=== PATIENT | female | born 1990 | race Caucasian/White ===

== ENCOUNTER 2017-01-31 13:34 | Emergency (ER) | payer MEDICAID, OTHER ==
[~2017-01-31] VITALS: Ht 157.5 cm; Wt 79.8 kg
[2017-01-31] MEDS ORDERED: PROA1AER INH (15:02)
[2017-01-31] MEDS ORDERED: GUAISYP4 PO (15:03)
[2017-01-31 15:10] VITALS: BP 111/69
== END 2017-01-31 15:29 | disposition home or self-care (01) ==
LOC: M ED 15:17
DX: J20.9 Acute bronchitis, unspecified (principal); F17.210 Nicotine dependence, cigarettes, uncomplicated

== ENCOUNTER → 2017-04-17 | Outpatient (CLI) | payer MEDICAID ==
[~2017-04-17] MED LIST: BACT800T5 PO; GUAISYP4 PO; PROAAER10 INH; TRINTAB3 PO
--- NOTE | 2017-04-17 14:53 | REP ---
FIRST TRIMESTER ULTRASOUND: Real-time sonographic evaluation of the gravid uterus performed utilizing transabdominal technique. There is a signal living intrauterine gestation with an estimated gestational age of 7 weeks 3 days based on a crown-rump length of 13 mm, EDC 12/01/2017. heart rate 160 beats per minute. There is no subchorionic hemorrhage. Right ovarian cystic structure probably represents a corpus luteum, approximately 2.7 cm in maximum diameter. Blood flow seen in each ovary with duplex Doppler evaluation, with no torsion. Signed by Chris Suarez MD 04/17/2017 05:09 P
== END ==
LOC: M RAD 13:48
PROVIDERS: ATTEND Physician Assistant
DX: Z32.01 Encounter for pregnancy test, result positive (principal); Z3A.00 Weeks of gestation of pregnancy not specified

== ENCOUNTER → 2017-05-17 | Outpatient (CLI) | payer OTHER ==
--- NOTE | 2017-05-17 15:09 | REP ---
PELVIC ULTRASOUND: Real-time sonographic evaluation of the pelvis is performed utilizing transabdominal and endovaginal technique. The urinary bladder measures 3.9 x 2.2 x 6.8 cm. The uterus measures 7.4 x 4.7 x 5.3 cm. Endometrial thickness is 18 mm. Endometrium is heterogeneous in echotexture with some peripheral areas of increased flow with Doppler evaluation. I cannot exclude some degree of retained products of conception. Fibroid is noted in the left fundus, 1.7 x 1.1 x 1.8 cm. Right ovary measures 2.6 x 1.7 x 2.5 cm with a paraovarian cyst on the right 1.1 cm in diameter. The left ovary is normal in size and echotexture, 2.9 x 1.4 x 1.9 cm. There is no adnexal mass or free fluid. IMPRESSION: Thickened heterogeneous endometrium with areas of somewhat increased flow peripherally. I cannot exclude some degree of retained products of conception. Signed by Chris Suarez MD 05/18/2017 01:24 P
== END ==
LOC: M RAD 10:20
PROVIDERS: ATTEND Physician Assistant
DX: Z09 Encounter for follow-up examination after completed treatment for conditions other than malignant neoplasm (principal); O02.1 Missed abortion

== ENCOUNTER 2017-07-21 13:14 | Emergency (ER) | payer OTHER ==
[~2017-07-21] VITALS: Ht 157.5 cm; Wt 72.7 kg
[~2017-07-21 13:14] MED LIST changes: -BACT800T5 PO; -TRINTAB3 PO
[2017-07-21 13:15] VITALS: BP 116/73
[2017-07-21] MEDS ORDERED: TRINTAB3 PO (13:27)
[2017-07-21] MEDS ORDERED: BACT800T5 PO (13:51)
== END 2017-07-21 14:44 | disposition home or self-care (01) ==
LOC: M ED 13:14
DX: H04.319 Phlegmonous dacryocystitis of unspecified lacrimal passage (principal); F17.210 Nicotine dependence, cigarettes, uncomplicated

== ENCOUNTER 2017-10-10 09:13 | Emergency (ER) | payer OTHER ==
[2017-10-10] MEDS ORDERED: ONDANSETRON 4MG/2ML VIAL (J2405) As Ordered (10:20)
[2017-10-10 10:22] LABS: BEDSIDE GLUCOSE 87 MG/DL (70-105)
[2017-10-10] MEDS: ONDANSETRON 4MG/2ML VIAL (J2405) IV (10:27)
[2017-10-10 10:28] LABS: BASO % 0.5 % (0.0-1.0); EOS # 0.1 10^3/uL (0.0-0.50); EOS % 1.6 % (0.0-3.0); HEMATOCRIT 40.3 % (36.0-47.0); HEMOGLOBIN 13.8 g/dl (12.0-16.0); IMMATURE GRANULOCYTE % 0.3 % (0-0); LYMPH # 1.8 10^3/uL (1.5-6.5); LYMPH % 28.1 % (24.0-44.0); MEAN CORPUSCULAR HEMOGLOBIN 30.8 pg (27.0-33.0); MEAN CORPUSCULAR HGB CONC 34.2 g/dl (32.0-36.5); MONO # 0.3 10^3/uL (0.0-0.8); NEUTROPHILS # 4.1 10^3/uL (1.8-7.7); NEUTROPHILS % 64.5 % (36.0-66.0); PLATELET COUNT, AUTOMATED 206 10^3/uL (150-450); RED BLOOD COUNT 4.48 10^6/uL (4.00-5.40); RED CELL DISTRIBUTION WIDTH 13.4 % (11.5-14.5); WHITE BLOOD COUNT 6.4 10^3/uL (4.0-10.0)
[2017-10-10 10:49] LABS: AMPHETAMINES LEVEL URINE NEGATIVE (NEGATIVE); BARBITURATES URINE NEGATIVE (NEGATIVE); BENZODIAZEPINES URINE NEGATIVE (NEGATIVE); CANNABINOIDS URINE NEGATIVE (NEGATIVE); COCAINE METABOLITE URINE NEGATIVE (NEGATIVE); METHADONE URINE NEGATIVE (NEGATIVE); OPIATES URINE NEGATIVE (NEGATIVE); PHENCYCLIDINE URINE NEGATIVE (NEGATIVE)
[2017-10-10 10:59] LABS: ALBUMIN/GLOBULIN RATIO 1.11 (1.00-1.93); ALKALINE PHOSPHATASE 52 U/L (45-117); ALT/SGPT 16 U/L (12-78); ANION GAP 6 MEQ/L (8-16); AST/SGOT 15 U/L (7-37); BILIRUBIN,DIRECT 0.2 MG/DL (0.0-0.2); BILIRUBIN,TOTAL 0.9 MG/DL (0.2-1.0); BLOOD UREA NITROGEN 7 MG/DL (7-18); CALCIUM LEVEL 8.8 MG/DL (8.5-10.1); CARBON DIOXIDE LEVEL 26 MEQ/L (21-32); CHLORIDE LEVEL 109 MEQ/L (98-107); CREATININE FOR GFR 0.56 MG/DL (0.55-1.02); GLOMERULAR FILTRATION RATE > 60.0 (>60); GLUCOSE, FASTING 83 MG/DL (70-105); POTASSIUM SERUM 3.9 MEQ/L (3.5-5.1); SODIUM LEVEL 141 MEQ/L (136-145); TOTAL PROTEIN 7.6 GM/DL (6.4-8.2)
[2017-10-10 11:25] LABS: FREE T4 0.81 NG/DL (0.76-1.46)
== END 2017-10-10 12:17 | disposition home or self-care (01) ==
LOC: M ED 09:13
DX: R56.9 Unspecified convulsions (principal); F17.200 Nicotine dependence, unspecified, uncomplicated
CPT/HCPCS: J2405

== ENCOUNTER 2017-12-02 18:01 | Emergency (ER) | payer OTHER | END 2017-12-02 18:57 | disposition left against medical advice (07) | LOC: M ED 18:01 | DX: Z53.21 Procedure and treatment not carried out due to patient leaving prior to being seen by health care provider (principal) ==

== ENCOUNTER 2017-12-03 14:47 | Emergency (ER) | payer OTHER ==
[2017-12-03] MEDS: MECLIZINE 25 MG TABLET PO (16:32)
== END 2017-12-03 17:21 | disposition home or self-care (01) ==
LOC: M ED 14:47
DX: H61.23 Impacted cerumen, bilateral (principal); F17.200 Nicotine dependence, unspecified, uncomplicated; Z79.899 Other long term (current) drug therapy
CPT/HCPCS: 69210

== ENCOUNTER 2018-01-10 10:46 | Emergency (ER) | payer OTHER, SELFPAY | END 2018-01-10 13:31 | disposition home or self-care (01) | LOC: M ED 10:46 | DX: J06.9 Acute upper respiratory infection, unspecified (principal); H61.23 Impacted cerumen, bilateral; F17.200 Nicotine dependence, unspecified, uncomplicated; Z20.9 Contact with and (suspected) exposure to unspecified communicable disease | CPT/HCPCS: 71046 ==

== ENCOUNTER 2018-02-17 07:08 | Emergency (ER) | payer OTHER ==
[2018-02-17] MEDS ORDERED: ONDANSETRON 4MG/2ML VIAL (J2405) As Ordered (07:28)
[2018-02-17] MEDS: NS 1,000 ML IV (07:30)
[2018-02-17] MEDS: ONDANSETRON 4MG/2ML VIAL (J2405) IV ×2 (07:33→08:29)
[2018-02-17] MEDS: LORazepam 2 MG/ML VIAL (J2060) IV (07:33)
[2018-02-17 07:41] LABS: BASO # 0.1 10^3/uL (0.0-0.2); BASO % 0.5 % (0.0-1.0); EOS # 0.2 10^3/uL (0.0-0.50); EOS % 1.5 % (0.0-3.0); HEMATOCRIT 44.1 % (36.0-47.0); IMMATURE GRANULOCYTE % 0.3 % (0-3.0); LYMPH # 3.3 10^3/uL (1.5-6.5); LYMPH % 33.1 % (24.0-44.0); MEAN CORPUSCULAR HEMOGLOBIN 31.3 pg (27.0-33.0); MEAN CORPUSCULAR VOLUME 92.1 fl (80.0-96.0); MONO # 0.6 10^3/uL (0.0-0.8); MONO % 6.2 % (0.0-5.0); NEUTROPHILS # 5.9 10^3/uL (1.8-7.7); NEUTROPHILS % 58.4 % (36.0-66.0); PLATELET COUNT, AUTOMATED 326 10^3/uL (150-450); RED BLOOD COUNT 4.79 10^6/uL (4.00-5.40); RED CELL DISTRIBUTION WIDTH 12.7 % (11.5-14.5); WHITE BLOOD COUNT 10.1 10^3/uL (4.0-10.0)
[2018-02-17 08:00] LABS: CONTROL LINE HCG INT CTR LINE PRESENT; HCG, SERUM QUALITATIVE NEGATIVE (NEGATIVE)
[2018-02-17 08:07] LABS: ALBUMIN/GLOBULIN RATIO 0.98 (1.00-1.93); ALKALINE PHOSPHATASE 61 U/L (45-117); ALT/SGPT 24 U/L (12-78); ANION GAP 11 MEQ/L (8-16); AST/SGOT 17 U/L (7-37); BILIRUBIN,DIRECT < 0.1 MG/DL (0.0-0.2); BILIRUBIN,TOTAL 0.4 MG/DL (0.2-1.0); BLOOD UREA NITROGEN 12 MG/DL (7-18); CALCIUM LEVEL 8.8 MG/DL (8.5-10.1); CARBON DIOXIDE LEVEL 21 MEQ/L (21-32); CHLORIDE LEVEL 107 MEQ/L (98-107); CREATININE FOR GFR 0.87 MG/DL (0.55-1.30); GLOMERULAR FILTRATION RATE > 60.0 (>60); GLUCOSE, FASTING 102 MG/DL (70-100); SODIUM LEVEL 139 MEQ/L (136-145); TOTAL PROTEIN 8.1 GM/DL (6.4-8.2)
[2018-02-17 08:16] LABS: LIPASE 277 U/L (73-393)
[2018-02-17] MEDS: ACETAMINOPHEN TAB 650MG DOSE (2X325MG) PO (08:29)
[2018-02-17 08:31] LABS: KETONE, URINE AUTO RFX NEGATIVE (NEGATIVE); LEUKOCYTE ESTERASE UR AUTO RFX NEGATIVE (NEGATIVE); MUCUS, URINE RFX SMALL (NEGATIVE); NITRITE, URINE AUTO RFX NEGATIVE (NEGATIVE); RBC, URINE AUTO RFX 4 /HPF (0-3); SPECIFIC GRAVITY UR AUTO RFX 1.017 (1.002-1.035); SQUAM EPITHELIAL CELL UR AURFX 15 /HPF (0-6); WBC, URINE AUTO RFX 4 /HPF (0-3)
[2018-02-17] MEDS: levETIRAcetam INJection 1,000 MG in D5W 100 ML IV (08:44)
[2018-02-19 09:42] LABS: BEDSIDE GLUCOSE 88 MG/DL (70-105)
== END 2018-02-17 10:27 | disposition home or self-care (01) ==
LOC: M ED 07:08
DX: R56.9 Unspecified convulsions (principal); R51 Headache; R11.0 Nausea; R10.9 Unspecified abdominal pain; F17.200 Nicotine dependence, unspecified, uncomplicated
CPT/HCPCS: J2405

== ENCOUNTER → 2018-05-22 | Outpatient (REF) | payer OTHER ==
[2018-05-22 12:47] LABS: FREE T4 0.78 NG/DL (0.76-1.46)
[2018-05-22 16:14] LABS: FREE T3 3.7 PG/ML (2.2-4.0)
[2018-05-22 16:37] LABS: TOTAL 25(OH) VITAMIN D 19.9 NG/ML (30.0-100.0)
== END ==
LOC: M SFHCPLAZ 10:39
DX: E03.9 Hypothyroidism, unspecified (principal); F41.9 Anxiety disorder, unspecified

== ENCOUNTER 2019-01-27 10:46 | Emergency (ER) | payer MEDICAID, OTHER, SELFPAY ==
[~2019-01-27] VITALS: Ht 157.5 cm; Wt 72.7 kg
[~2019-01-27 10:46] MED LIST changes: +BACT800T5 PO; +DEBR6.5S4 AU; +KEPP1TAB PO; +MECL1CHW PO; +SUDATAB18 PO; +TRINTAB PO; +ZOFR4TAB14 PO
[2019-01-27] MEDS ORDERED: BUSP10TA (10:59)
[2019-01-27] MEDS ORDERED: FLUO20CA19 (10:59)
[2019-01-27] MEDS ORDERED: LEVE750T5 (10:59)
[2019-01-27] MEDS ORDERED: ACETAMINOPHEN TAB 650MG DOSE (2X325MG) PO ONE (12:15)
[2019-01-27] MEDS ORDERED: KEPP1TAB PO (12:28)
[2019-01-27 13:12] VITALS: BP 102/52
[2019-01-28] MEDS ORDERED: LEVE750T5 (11:37)
[2019-01-28] MEDS ORDERED: KEPP10002 PO (13:50)
== END 2019-01-27 13:15 | disposition home or self-care (01) ==
LOC: M ED 10:46 → EDBD 10:46 → M ED 13:15
DX: G40.909 Epilepsy, unspecified, not intractable, without status epilepticus (principal); F12.10 Cannabis abuse, uncomplicated; Z79.899 Other long term (current) drug therapy

== ENCOUNTER 2019-01-28 11:17 | Emergency (ER) | payer MEDICAID, SELFPAY ==
[~2019-01-28] VITALS: Ht 157.5 cm; Wt 83.3 kg
[~2019-01-28 11:17] MED LIST changes: +BUSP10TA; +FLUO20CA19; +LEVE750T5
[2019-01-28] MEDS ORDERED: ONDANSETRON 4MG/2ML VIAL (J2405) IV ONE ×2 (11:30→12:15)
[2019-01-28] MEDS ORDERED: LEVE750T5 (11:37)
[2019-01-28 11:49] LABS: BASO # 0.1 10^3/uL (0.0-0.2); BASO % 0.5 % (0.0-1.0); EOS # 0.1 10^3/uL (0.0-0.50); EOS % 0.7 % (0.0-3.0); HEMATOCRIT 43.6 % (36.0-47.0); LYMPH # 3.1 10^3/uL (1.5-6.5); LYMPH % 29.9 % (24.0-44.0); MEAN CORPUSCULAR HEMOGLOBIN 31.1 pg (27.0-33.0); MEAN CORPUSCULAR HGB CONC 34.4 g/dl (32.0-36.5); MEAN CORPUSCULAR VOLUME 90.5 fl (80.0-96.0); MONO # 0.6 10^3/uL (0.0-0.8); MONO % 6.1 % (0.0-5.0); NEUTROPHILS # 6.4 10^3/uL (1.8-7.7); NEUTROPHILS % 62.3 % (36.0-66.0); PLATELET COUNT, AUTOMATED 334 10^3/uL (150-450); RED BLOOD COUNT 4.82 10^6/uL (4.00-5.40); WHITE BLOOD COUNT 10.3 10^3/uL (4.0-10.0)
[2019-01-28 12:03] LABS: HCG, SERUM QUALITATIVE NEGATIVE (NEGATIVE)
[2019-01-28 12:10] LABS: ALBUMIN 4.3 GM/DL (3.2-5.2); ALT/SGPT 22 U/L (12-78); BILIRUBIN,DIRECT < 0.1 MG/DL (0.0-0.2); BILIRUBIN,TOTAL 0.4 MG/DL (0.2-1.0); BLOOD UREA NITROGEN 8 MG/DL (7-18); CARBON DIOXIDE LEVEL 21 MEQ/L (21-32); CHLORIDE LEVEL 108 MEQ/L (98-107); CREATININE FOR GFR 0.81 MG/DL (0.55-1.30); GLOMERULAR FILTRATION RATE > 60.0 (>60); GLUCOSE, FASTING 94 MG/DL (70-100); POTASSIUM SERUM 3.9 MEQ/L (3.5-5.1); SODIUM LEVEL 137 MEQ/L (136-145); TOTAL PROTEIN 8.1 GM/DL (6.4-8.2)
[2019-01-28] MEDS ORDERED: ACETAMINOPHEN 500 MG TAB PO ONE (12:15)
--- NOTE | 2019-01-28 12:21 | REP ---
CT Head without contrast HISTORY: Seizure COMPARISON: 02/17/2018 There is no intraparenchymal hemorrhage, acute infarct, mass or midline shift. The ventricular system is normal in appearance. There is no extra cerebral collection. There is no fracture. The visualized sinuses are clear. IMPRESSION: There is no intracranial lesion. Electronically Signed by Mark Lu MD 01/28/2019 12:13 P
[2019-01-28] MEDS ORDERED: levETIRAcetam INJection 1,000 MG in D5W 100 ML IV ONE (12:30)
[2019-01-28 13:30] VITALS: BP 102/55
[2019-01-28] MEDS ORDERED: KEPP10002 PO (13:50)
== END 2019-01-28 14:12 | disposition home or self-care (01) ==
LOC: M ED 11:17
DX: G40.909 Epilepsy, unspecified, not intractable, without status epilepticus (principal); F17.200 Nicotine dependence, unspecified, uncomplicated; Z79.899 Other long term (current) drug therapy; Z91.14 Patient's other noncompliance with medication regimen
CPT/HCPCS: 70450; 80048; 80076; 84703; 85025; 96374; 96375; 96376; 99284; J1953; J2405

== ENCOUNTER 2019-02-18 12:35 | Emergency (ER) | payer MEDICAID, SELFPAY ==
[~2019-02-18] VITALS: Ht 157.5 cm; Wt 72.7 kg
[~2019-02-18 12:35] MED LIST changes: +KEPP10002 PO
[2019-02-18] MEDS ORDERED: KEPP1TAB2 PO (13:17)
[2019-02-18 13:36] LABS: BASO # 0.1 10^3/uL (0.0-0.2); BASO % 0.5 % (0.0-1.0); EOS # 0.1 10^3/uL (0.0-0.50); EOS % 0.7 % (0.0-3.0); HEMATOCRIT 40.7 % (36.0-47.0); LYMPH # 2.5 10^3/uL (1.5-6.5); LYMPH % 25.8 % (24.0-44.0); MEAN CORPUSCULAR HEMOGLOBIN 31.8 pg (27.0-33.0); MEAN CORPUSCULAR HGB CONC 34.4 g/dl (32.0-36.5); MEAN CORPUSCULAR VOLUME 92.5 fl (80.0-96.0); MONO # 0.6 10^3/uL (0.0-0.8); MONO % 6.4 % (0.0-5.0); NEUTROPHILS # 6.3 10^3/uL (1.8-7.7); NEUTROPHILS % 66.3 % (36.0-66.0); PLATELET COUNT, AUTOMATED 285 10^3/uL (150-450); WHITE BLOOD COUNT 9.5 10^3/uL (4.0-10.0)
[2019-02-18 14:32] VITALS: BP 122/67
--- NOTE | 2019-02-18 14:50 | REP ---
Emergency first trimester obstetric sonography: History: Vaginal bleeding. Findings: Transabdominal and transvaginal scanning are performed. An intrauterine gestational sac is seen. A yolk sac is noted within the sac. No definite embryonic pole is seen. By mean sac size diameter (14.8 mm) this would correspond with 6 week 2 day gestational age estimate. There is a small subchorionic hemorrhage adjacent to the sac measuring 1.6 x 0.7 x 1.4 cm. Normal left ovary is seen measuring 2.8 x 1.6 x 2.0 cm. Right ovary dimensions are 3.7 x 3.0 x 4.1 cm. The right ovary is high in the pelvis seen only on transabdominal imaging. There is a 2.1 cm follicle cyst in the right ovary. Doppler flow is normal bilaterally in the ovaries, resistive indices are 0.51 on the right and 0.57 on the left. Impression: There is an intrauterine gestational sac 6 week 2 day by mean sac size diameter. This contains a yolk sac but no definite embryonic pole. viability cannot be confirmed. Consider followup. No cul-de-sac fluid or extra abdominal lesion. There is a 1.6 cm fluid collection adjacent to the sac. Electronically Signed by Dell Evans MD 02/18/2019 07:32 P
== END 2019-02-18 14:41 | disposition home or self-care (01) ==
LOC: M ED 12:35
DX: O20.9 Hemorrhage in early pregnancy, unspecified (principal); O99.351 Diseases of the nervous system complicating pregnancy, first trimester; R56.9 Unspecified convulsions; Z3A.01 Less than 8 weeks gestation of pregnancy; O99.331 Smoking (tobacco) complicating pregnancy, first trimester; F17.210 Nicotine dependence, cigarettes, uncomplicated; Z79.899 Other long term (current) drug therapy

== ENCOUNTER → 2019-03-19 | Outpatient (REF) | payer OTHER ==
[~2019-03-19] MED LIST changes: +KEPP1TAB2 PO
== END ==
LOC: M LAB REF 12:10
PROVIDERS: ATTEND Obstetrics & Gynecology
DX: O36.80X0 Pregnancy with inconclusive fetal viability, not applicable or unspecified (principal); Z3A.00 Weeks of gestation of pregnancy not specified

== ENCOUNTER → 2019-03-22 | Outpatient (CLI) | payer OTHER ==
--- NOTE | 2019-03-22 15:12 | REP ---
Obstetric sonography: History: Supervision of . Followup from February 18, 2019. Findings: Today's transabdominal scanning confirms the presence of a single living intrauterine gestation. The crown-rump length of the embryonic pole is 30 mm. This corresponds with a 0-lgka-0-day gestational age estimate. heart rate is recorded at 160 beats per minute. No subchorionic hemorrhage is seen. There is a small cystic area in the right ovary consistent with corpus luteum, 2.7 cm in greatest diameter. No gross anomaly is seen. Impression: Viable single intrauterine gestation at 9 weeks 6 days by today's crown-rump length. [place] by today's sonography October 19, 2019. Electronically Signed by Dell Evans MD 03/22/2019 03:17 P
== END ==
LOC: M RAD 14:12
PROVIDERS: ATTEND Obstetrics & Gynecology
DX: Z34.81 Encounter for supervision of other normal pregnancy, first trimester (principal); Z3A.09 9 weeks gestation of pregnancy

== ENCOUNTER 2019-04-25 11:04 | Emergency (ER) | payer OTHER ==
[~2019-04-25] VITALS: Ht 157.5 cm; Wt 81.5 kg
[~2019-04-25 11:04] MED LIST changes: -KEPP250T5 PO; -PREN29CH2 PO; -ZOLO25TA PO
[2019-04-25] MEDS ORDERED: ZOLO25TA PO (11:12)
[2019-04-25] MEDS ORDERED: PREN29CH2 PO (11:12)
[2019-04-25] MEDS ORDERED: KEPP10002 PO (11:45)
[2019-04-25] MEDS ORDERED: levETIRAcetam INJection 1,250 MG in D5W 100 ML IV ONE (12:00)
[2019-04-25] MEDS ORDERED: KEPP250T5 PO (12:24)
[2019-04-25 12:30] VITALS: BP 97/57
== END 2019-04-25 12:41 | disposition home or self-care (01) ==
LOC: M ED 11:04 → EDBD 11:04 → M ED 12:41
DX: O99.352 Diseases of the nervous system complicating pregnancy, second trimester (principal); G40.909 Epilepsy, unspecified, not intractable, without status epilepticus; Z79.899 Other long term (current) drug therapy; Z3A.16 16 weeks gestation of pregnancy
CPT/HCPCS: 96365; 99284; J1953

== ENCOUNTER → 2019-04-25 | Outpatient (REF) | payer OTHER ==
[~2019-04-25] MED LIST changes: +KEPP250T5 PO; +PREN29CH2 PO; +ZOLO25TA PO
[2019-04-25 17:36] LABS: HEMATOCRIT 35.8 % (36.0-47.0); HEMOGLOBIN 12.5 g/dl (12.0-15.5); MEAN CORPUSCULAR HEMOGLOBIN 31.7 pg (27.0-33.0); MEAN CORPUSCULAR HGB CONC 34.9 g/dl (32.0-36.5); MEAN CORPUSCULAR VOLUME 90.9 fl (80.0-96.0); PLATELET COUNT, AUTOMATED 276 10^3/uL (150-450); RED BLOOD COUNT 3.94 10^6/uL (4.00-5.40); WHITE BLOOD COUNT 13.4 10^3/uL (4.0-10.0)
[2019-04-25 20:16] LABS: HCG, SERUM QUANTITATIVE 13410 MIU/ML
[2019-04-26 09:42] LABS: RUBELLA IgG QUALITATIVE IMMUNE (IMMUNE)
[2019-04-26 10:13] LABS: HEPATITIS C VIRUS ABY INDEX 0.1 INDEX (<0.8)
[2019-04-26 10:23] LABS: HIV 1&2 SCREEN CENTAUR NEGATIVE (NEGATIVE)
== END ==
LOC: M LAB REF 16:54
PROVIDERS: ATTEND Obstetrics & Gynecology
DX: Z34.82 Encounter for supervision of other normal pregnancy, second trimester (principal)

== ENCOUNTER 2019-05-25 14:39 | Emergency (ER) | payer OTHER ==
[~2019-05-25] VITALS: Ht 157.5 cm; Wt 82.0 kg
[~2019-05-25 14:39] MED LIST changes: +KEPP250T5 PO; +PREN29CH2 PO; +ZOLO25TA PO
[2019-05-25] MEDS ORDERED: FOLI1TAB11 (14:45)
[2019-05-25 15:35] LABS: BASO % 0.3 % (0.0-1.0); EOS # 0.1 10^3/uL (0.0-0.50); EOS % 0.9 % (0.0-3.0); HEMATOCRIT 30.9 % (36.0-47.0); HEMOGLOBIN 10.7 g/dl (12.0-15.5); LYMPH # 2.1 10^3/uL (1.5-6.5); LYMPH % 18.3 % (24.0-44.0); MEAN CORPUSCULAR HEMOGLOBIN 31.4 pg (27.0-33.0); MEAN CORPUSCULAR HGB CONC 34.6 g/dl (32.0-36.5); MEAN CORPUSCULAR VOLUME 90.6 fl (80.0-96.0); MONO # 0.6 10^3/uL (0.0-0.8); MONO % 5.3 % (0.0-5.0); NEUTROPHILS # 8.7 10^3/uL (1.8-7.7); NEUTROPHILS % 74.6 % (36.0-66.0); PLATELET COUNT, AUTOMATED 248 10^3/uL (150-450); RED BLOOD COUNT 3.41 10^6/uL (4.00-5.40); WHITE BLOOD COUNT 11.7 10^3/uL (4.0-10.0)
[2019-05-25 15:56] LABS: BLOOD UREA NITROGEN 5 MG/DL (7-18); CALCIUM LEVEL 8.6 MG/DL (8.5-10.1); CARBON DIOXIDE LEVEL 26 MEQ/L (21-32); CHLORIDE LEVEL 107 MEQ/L (98-107); CREATININE FOR GFR 0.41 MG/DL (0.55-1.30); GLOMERULAR FILTRATION RATE > 60.0 (>60); GLUCOSE, FASTING 84 MG/DL (70-100); POTASSIUM SERUM 3.5 MEQ/L (3.5-5.1); SODIUM LEVEL 139 MEQ/L (136-145)
[2019-05-25] MEDS ORDERED: levETIRAcetam 250MG TABLET (KEPPRA) PO ONE (16:30)
[2019-05-25] MEDS ORDERED: KEPP1TAB PO (17:29)
[2019-05-25 17:43] VITALS: BP 114/61
--- NOTE | 2019-05-26 09:15 | REP ---
OB ULTRASOUND COMPLETE: 05/25/2019. Clinical history: 19 weeks gestation with left lower quadrant pain. Seized prior coming in. Comparison: First trimester ultrasound 03/22/2019, 02/18/2019. Findings: Sonographic evaluation of the gravid uterus shows a single intrauterine gestation in variable position. There is an anterior grade zero placenta without previa or abruption. Cervix is 4.1 cm long and closed. There is a posterior contraction during the early part of the examination which resolved later. biometry:BPD 4.4 cm 19 weeks 1 dayHC 16.2 cm 19 weeksAC 13.9 cm 19 weeks 2 daysFL 3 cm 19 weeks 2 daysHL 2.9 cm 19 weeks 3 days. This gives average ultrasound age 19 weeks 2 days, EDC 10/17/2019. By initial ultrasound EDC 10/14/2019, by LMP 10/19/2019. Measurement ratios are in the normal range. The estimated weight 282 grams or 9 ounces is 30th percentile for dating based on her first ultrasound. anatomy screen: Heart rate 144 and regular. Cranial vault, lateral ventricles, choroid plexus, cavum septum pellucidum, cerebellum, cisterna magna were all intact. Profile view was seen but the nose and lips are not adequately presented lungs, four-chamber heart view, ventricular outflow tracts, diaphragm, left-sided stomach bubble, cord insertion, three-vessel cord, kidneys and bladder and lower extremities were unremarkable. The entirety of the spine is not optimally visualized due to position and the upper extremities also are not optimally visualized due to position. Cord appears draped over the neck. I could not exclude a nuchal cord. Impression: 1. Single intrauterine gestation in variable position with a closed 4 cm long cervix. There is an anterior grade zero placenta without previa abruption and visually normal amniotic fluid volume. 2. There was a contraction noted posteriorly on the early images which had resolved by the later images. 3. heart rate 144 and regular. Estimated weight 30th percentile. Average ultrasound age today 19 weeks 2 days, by initial ultrasound 19 weeks 5 days with EDC 10/14/2019. Electronically Signed by Tommy Triplett MD 05/26/2019 07:39 A
== END 2019-05-25 17:52 | disposition home or self-care (01) ==
LOC: M ED 14:39
DX: O99.352 Diseases of the nervous system complicating pregnancy, second trimester (principal); O99.332 Smoking (tobacco) complicating pregnancy, second trimester; Z3A.19 19 weeks gestation of pregnancy; Z79.899 Other long term (current) drug therapy

== ENCOUNTER → 2019-06-18 | Outpatient (REF) | payer OTHER ==
[~2019-06-18] MED LIST changes: +FOLI1TAB11
== END ==
LOC: M LABNEURO 14:58
PROVIDERS: ATTEND Physician Assistant Medical
DX: R56.9 Unspecified convulsions (principal)

== ENCOUNTER → 2019-07-23 | Outpatient (CLI) | payer OTHER ==
[2019-07-23 15:47] LABS: HEMATOCRIT 30.5 % (36.0-47.0); HEMOGLOBIN 10.2 g/dl (12.0-15.5); MEAN CORPUSCULAR HEMOGLOBIN 31.1 pg (27.0-33.0); MEAN CORPUSCULAR HGB CONC 33.4 g/dl (32.0-36.5); PLATELET COUNT, AUTOMATED 274 10^3/uL (150-450); RED BLOOD COUNT 3.28 10^6/uL (4.00-5.40)
== END ==
LOC: M LAB 13:57
PROVIDERS: ATTEND Nurse Practitioner Women's Health
DX: O09.892 Supervision of other high risk pregnancies, second trimester (principal); Z3A.28 28 weeks gestation of pregnancy

== ENCOUNTER → 2019-08-26 | Outpatient (CLI) | payer OTHER | LOC: M LAB 15:27 | PROVIDERS: ATTEND Physician Assistant Medical | DX: G40.909 Epilepsy, unspecified, not intractable, without status epilepticus (principal) ==

== ENCOUNTER 2019-09-12 18:06 | Emergency (ER) | payer OTHER ==
[~2019-09-12] VITALS: Ht 157.5 cm; Wt 93.2 kg
[2019-09-12] MEDS ORDERED: LEVE500T5 PO (18:14)
[2019-09-12] MEDS ORDERED: LEVE10003 PO (18:14)
[2019-09-12] MEDS ORDERED: NS 1,000 ML IV ONE (18:45)
--- NOTE | 2019-09-12 20:49 | REPVR ---
PROCEDURE INFORMATION: Exam: US , Limited Exam date and time: 09/12/2019 7:13 PM Age: 28 years old Clinical history: complicated by abdominal or pelvic pain; Lower; Third trimester; Gestational age or lmp: 35w 3d; ; Additional info: Pelvic pain S/P seizure; 8 months TECHNIQUE: Imaging protocol: Real-time ultrasound of the maternal uterus with image documentation. Exam focused on the clinical indication. COMPARISON: US OBS SINGEL GEST 05/25/2019 3:58 PM FINDINGS: GESTATION: Gestation: Detailed imaging was not performed. Heart rate: 113 beats per minute. Presentation: Vertex position. Placenta: Anterior. Amniotic fluid: 19.3 cm. DOPPLER: Umbilical artery Doppler: Umbilical cord SD ratio: 2.9. Umbilical cord resistive index: 0.66. MATERNAL: Cervix: Cervical length: 4.8 cm. IMPRESSION: 1. Amniotic fluid index: 19.3 cm. 2. Single living fetus in vertex position. 3. heart rate: 113 beats per minute. Electronically signed by: Jorge Candelaria On 09/12/2019 20:49:11 PM
[2019-09-12 20:54] VITALS: BP 126/67
== END 2019-09-12 21:00 | disposition home or self-care (01) ==
LOC: M ED 18:06
DX: O99.353 Diseases of the nervous system complicating pregnancy, third trimester (principal); G40.909 Epilepsy, unspecified, not intractable, without status epilepticus; O99.89 Other specified diseases and conditions complicating pregnancy, childbirth and the puerperium; R10.2 Pelvic and perineal pain; O99.333 Smoking (tobacco) complicating pregnancy, third trimester; F17.210 Nicotine dependence, cigarettes, uncomplicated; Z3A.35 35 weeks gestation of pregnancy; Z79.899 Other long term (current) drug therapy

== ENCOUNTER → 2019-09-17 | Outpatient (REF) | payer OTHER ==
[~2019-09-17] MED LIST changes: +LEVE10003 PO; +LEVE500T5 PO
== END ==
LOC: M LAB REF 17:07
PROVIDERS: ATTEND Nurse Practitioner Women's Health
DX: O09.893 Supervision of other high risk pregnancies, third trimester (principal)

== ENCOUNTER 2019-10-10 05:02 | Inpatient (IN) | payer OTHER ==
[2019-10-10] VITALS (10 sets, daily range): BP systolic 105–127; BP diastolic 52–75
[~2019-10-10] VITALS: Ht 157.5 cm; Wt 93.6 kg
[2019-10-10] MEDS ORDERED: LACTATED RINGER'S 1000 ML IV STA (05:35)
[2019-10-10] MEDS ORDERED: LR 1,000 ML IV SCH ×2 (05:35→09:00)
[2019-10-10] MEDS ORDERED: BICITRA 30ML SOLN UDC PO ONE (05:45)
[2019-10-10] MEDS ORDERED: ceFAZolin SOD 2 GM in IV 1 EA IV ONE (05:45)
[2019-10-10 06:07] LABS: HEMATOCRIT 33.1 % (36.0-47.0); HEMOGLOBIN 10.7 g/dl (12.0-15.5); MEAN CORPUSCULAR HEMOGLOBIN 29.2 pg (27.0-33.0); MEAN CORPUSCULAR HGB CONC 32.3 g/dl (32.0-36.5); MEAN CORPUSCULAR VOLUME 90.2 fl (80.0-96.0); PLATELET COUNT, AUTOMATED 256 10^3/uL (150-450); RED BLOOD COUNT 3.67 10^6/uL (4.00-5.40); WHITE BLOOD COUNT 14.7 10^3/uL (4.0-10.0)
[2019-10-10] MEDS ORDERED: OXYTOCIN DRIP 30 UNITS in IV 1 EA IV SCH (07:41)
[2019-10-10] MEDS ORDERED: RHOGAM 300 MCG (1500 IU) INJ (J2790) IM SCH (07:45)
[2019-10-10] MEDS ORDERED: MOM 30ML SUSPENSION UDC PO PRN (07:45)
[2019-10-10] MEDS ORDERED: ACETAMINOPHEN 500 MG TAB PO PRN (07:45)
[2019-10-10] MEDS ORDERED: ONDANSETRON 4 MG TAB (S0181) PO PRN (07:45)
[2019-10-10] MEDS ORDERED: MEASLES,MUMPS,RUBELLA VACCINE INJ (MMR-II) (90707) SC SCH (07:45)
[2019-10-10] MEDS ORDERED: PERCOCET 5MG/325MG TAB PO PRN ×3 (07:45→09:00)
[2019-10-10] MEDS ORDERED: KETOROLAC 30 MG/ML VIAL (J1885) IV SCH ×2 (07:45→08:00)
[2019-10-10] MEDS ORDERED: diphenhydrAMINE INJ 50MG/ML VIAL (J1200) IV PRN (07:50)
[2019-10-10] MEDS ORDERED: METOCLOPRAMIDE INJ 10MG/2ML VIAL (J2765) IV PRN ×2 (07:50→09:00)
[2019-10-10] MEDS ORDERED: NALOXONE INJ 0.4 MG/1 ML VIAL (J2310) IV PRN ×2 (07:50)
[2019-10-10] MEDS ORDERED: ONDANSETRON 4MG/2ML VIAL (J2405) IV PRN ×2 (07:50→09:00)
[2019-10-10] MEDS ORDERED: NALBUPHINE HCL 10 MG/ML AMP (J2300) IV PRN (07:50)
[2019-10-10] MEDS ORDERED: KETOROLAC 60 MG/2 ML VIAL (J1885) As Ordered ONE (08:09)
[2019-10-10] MEDS ORDERED: OXYTOCIN INJ 10 UNITS/ML VIAL (J2590) As Ordered ONE (08:09)
[2019-10-10] MEDS ORDERED: ONDANSETRON 4MG/2ML VIAL (J2405) As Ordered ONE (08:09)
[2019-10-10] MEDS ORDERED: MORPHINE PRES-FREE INJ 10 MG/10 ML VIAL (J2274) As Ordered ONE (08:09)
[2019-10-10] MEDS ORDERED: dexameTHASONE 4 MG/ML 1ML VIAL (J1100) As Ordered ONE (08:09)
[2019-10-10] MEDS ORDERED: PHENYLephrine HCL 500 MCG/5 ML (100MCG/ML) SYRINGE (J2370) As Ordered ONE (08:09)
[2019-10-10 08:22] LABS: CORD GAS ABE V -2.9; CORD GAS HCO3 V 23.8 MEQ/L; CORD GAS O2 SAT V 61.3 %; CORD GAS PCO2 V 48.7 mmHg; CORD GAS PH V 7.307 UNITS; CORD GAS PO2 V 26.7 mmHg; CORD GAS SBC V 21.2 MEQ/L; CORD GAS TCO2 V 25.3 MEQ/L
[2019-10-10 08:23] LABS: CORD GAS ABE A -2.1; CORD GAS HCO3 A 26.7 MEQ/L; CORD GAS O2 SAT A 35.2 %; CORD GAS PCO2 A 63.8 mmHg; CORD GAS PH A 7.24 UNITS; CORD GAS PO2 A 18.4 mmHg; CORD GAS SBC A 21.3 MEQ/L; CORD GAS TCO2 A 28.7 MEQ/L
[2019-10-10] MEDS ORDERED: fentaNYL 100 MCG/2 ML INJECTION (J3010) IV PRN (09:00)
[2019-10-10] MEDS ORDERED: MEPERIDINE INJ 25 MG/ML VIAL (J2175) IV PRN (09:00)
[2019-10-10] MEDS ORDERED: OXYTOCIN 30 UNITS IN 0.9% NaCl 500ML IV BAG (J2590) As Ordered ONE (09:24)
--- NOTE | 2019-10-10 09:57 | RO ---
DATE OF PROCEDURE: 10/10/2019 Miryam is a 29-year-old female who is at term with a history of seizures and was scheduled for an elective primary section. She was seen in labor and delivery in consultation and still wants to proceed with the primary section. PREOPERATIVE DIAGNOSIS: Term with a history of seizures for elective primary section. POSTOPERATIVE DIAGNOSIS: Term with a history of seizures for elective primary section. PROCEDURE: Primary section via Pfannenstiel incision. ANESTHESIA: Spinal. SURGEON: Dr. Mark Daniels BUTTON CUTTING MACHINE OPERATOR: COMPLICATIONS: None. ESTIMATED BLOOD LOSS: 500 mL. FINDINGS: Male in occiput transverse position. scores of 8 and 9. weight 7 pounds 2 ounces. Normal-appearing placenta. Normal tubes and ovaries. PROCEDURE: After obtaining informed consent, the patient was taken to the operating room where spinal anesthetic was found to be adequate. She was then draped and prepped usual sterile fashion in the supine position. At this point, a Pfannenstiel incision was made. This was carried down to the fascia. Fascia was incised in midline fashion and carried through laterally. Superior aspect of the fascia was then grasped with Heriberto clamps, tented off and dissected off the rectus muscles sharply. The inferior aspect was dissected off in a similar fashion. Rectus muscles in midline fashion. Perineum identified. Peritoneal cavity entered bluntly. Superior and inferior dissection of the peritoneum was then done with good visualization of the bladder. At this point, a Mobius skin retractor was placed. A low-transverse uterine incision was made. Infant was delivered in atraumatic fashion. Nose and mouth bulb suctioned. Cord doubly clamped and cut. The was then handed over to the waiting warmer. Cord blood and cord gas were sent. Placenta removed manually. Uterus cleared of all clot and debris. The uterine incision was then repaired in two separate layers of 0 Vicryl sutures. Pelvis copiously irrigated with normal saline and suctioned out. Attention turned to the peritoneum, which was closed in a running fashion using 2-0 Vicryl. Fascia closed in two separate segments of 0 Vicryl sutures. All superficial bleeders were coagulated and the skin was reapproximated in subcuticular fashion using 3-0 Vicryl on a Pablo. Steri-Strips placed. The patient tolerated procedure well. She was then transferred to recovery room in stable condition.
[2019-10-10] MEDS: levETIRAcetam 250MG TABLET (KEPPRA) PO SCH ×2 (12:06→20:35)
[2019-10-10] MEDS: DOCUSATE SODIUM 100 MG CAP PO SCH ×2 (12:06→20:35)
[2019-10-10] MEDS: PRENATAL VITAMINS CHEWABLE TABLET PO SCH (12:06)
[2019-10-10] MEDS: KETOROLAC 30 MG/ML VIAL (J1885) IV SCH ×2 (14:23→20:34)
[2019-10-11] MEDS: KETOROLAC 30 MG/ML VIAL (J1885) IV SCH (01:46)
[2019-10-11 02:12] VITALS: BP 119/58
[2019-10-11 06:01] VITALS: BP 111/58
[2019-10-11 07:03] LABS: HEMATOCRIT 24.8 % (36.0-47.0); MEAN CORPUSCULAR HGB CONC 33.1 g/dl (32.0-36.5); MEAN CORPUSCULAR VOLUME 90.8 fl (80.0-96.0); PLATELET COUNT, AUTOMATED 209 10^3/uL (150-450); RED BLOOD COUNT 2.73 10^6/uL (4.00-5.40); WHITE BLOOD COUNT 15.2 10^3/uL (4.0-10.0)
[2019-10-11 07:04] LABS: HEMOGLOBIN 8.2 g/dl (12.0-15.5)
[2019-10-11] MEDS: DOCUSATE SODIUM 100 MG CAP PO SCH ×2 (09:31→21:20)
[2019-10-11] MEDS: PRENATAL VITAMINS CHEWABLE TABLET PO SCH (09:31)
[2019-10-11] MEDS: IBUPROFEN 800 MG TAB PO SCH ×2 (09:31→18:27)
[2019-10-11] MEDS: levETIRAcetam 250MG TABLET (KEPPRA) PO SCH ×2 (09:32→21:21)
[2019-10-11] MEDS ORDERED: IBUPROFEN 800 MG TAB PO SCH (09:45)
[2019-10-11 10:00] VITALS: BP 101/60
[2019-10-11 14:00] VITALS: BP 114/64
[2019-10-11 18:00] VITALS: BP 113/59
[2019-10-11 22:00] VITALS: BP 131/79
[2019-10-12] MEDS: IBUPROFEN 800 MG TAB PO SCH ×2 (02:09→09:16)
[2019-10-12 06:00] VITALS: BP 102/54
--- NOTE | 2019-10-12 07:52 | DS.PDOC ---
Discharge Summary General Date of Admission Oct 10, 2019 at 05:02 Date of Discharge 10/12/2019 Discharge Summary PROCEDURES PERFORMED DURING STAY: Primary . ADMITTING DIAGNOSES: 1. Seizure disorder 2. Planned primary section DISCHARGE DIAGNOSES: 1. Primary section. COMPLICATIONS/CHIEF COMPLAINT: History Of Seizures. HISTORY OF PRESENT ILLNESS: G4 now P 1 admitted 10/10/2019 for elective primary due to seizure history. HOSPITAL COURSE: Adequate pain management, voiding, passing flatus. DISCHARGE MEDICATIONS: Please see below. ALLERGIES: Please see below. PHYSICAL EXAMINATION ON DISCHARGE: VITAL SIGNS: Please see below. GENERAL: No distress HEENT: WNL NECK: Supple CARDIOVASCULAR EXAMINATION: HRR, normotensive RESPIRATORY EXAMINATION: Clear and unlabored ABDOMINAL EXAMINATION: Fundus firm. Wound clean, dry, well approximated with steristrips intact EXTREMITIES: Equal strength and motion SKIN: Intact NEUROLOGICAL EXAMINATION: Grossly intact PSYCHIATRIC EXAMINATION: Appropriate LABORATORY DATA: Please see below. PROGNOSIS: Good ACTIVITY: As tolerated. Pelvic rest DIET: As tolerated DISCHARGE PLAN: Discharge to home today DISPOSITION: Home. DISCHARGE INSTRUCTIONS: 1. Pelvic rest. 2. Routine precautions - call with fever, N/V chills, foul lochia or wound exudate. 3. RTO 2 wks and 6 wks DISCHARGE CONDITION: Stable. Vital Signs/I&Os Vital Signs Date Time Temp Pulse Resp B/P (MAP) Pulse Ox O2 Delivery O2 Flow Rate FiO2 10/12/19 06:00 97.0 75 20 102/54 (70) 99 Room Air Discharge Medications Scheduled levETIRAcetam (levETIRAcetam) 1,000 Mg Tablet, 2 TABS PO QHS, (Reported) levETIRAcetam (levETIRAcetam) 500 Mg Tablet, 1,500 MG PO QAM, (Reported) Miscellaneous Medications No115/Iron/Folic Acid ( 19 Chewable Tablet) 1 Each Tab.chew, 1 CHW PO, (Reported) Allergies Coded Allergies: No Known Allergies (Unverified , 01/27/19) Cindy Gonzalez CNM Oct 12, 2019 07:52
[2019-10-12] MEDS ORDERED: IBUP80TA PO (07:55)
[2019-10-12] MEDS ORDERED: PERCOCET PO (07:55)
[2019-10-12] MEDS: levETIRAcetam 250MG TABLET (KEPPRA) PO SCH (09:17)
[2019-10-12] MEDS: DOCUSATE SODIUM 100 MG CAP PO SCH (09:17)
[2019-10-12] MEDS: PRENATAL VITAMINS CHEWABLE TABLET PO SCH (09:17)
== END 2019-10-12 12:45 | disposition home or self-care (01) | DRG 540 ==
LOC: M LDI 05:02 → M OBS 10:26
PROVIDERS: ADMIT Obstetrics & Gynecology; ATTEND Obstetrics & Gynecology
PROC: 10D00Z1 Extraction of Products of Conception, Low, Open Approach (ICD-10-PCS; principal; 2019-10-10 07:30)
DX: O99.354 Diseases of the nervous system complicating childbirth (principal); O26.893 Other specified pregnancy related conditions, third trimester; G40.909 Epilepsy, unspecified, not intractable, without status epilepticus; O99.334 Smoking (tobacco) complicating childbirth; F17.210 Nicotine dependence, cigarettes, uncomplicated; Z3A.39 39 weeks gestation of pregnancy; O32.2XX0 Maternal care for transverse and oblique lie, not applicable or unspecified; Z37.0 Single live birth

== ENCOUNTER 2019-10-15 08:23 | Emergency (ER) | payer OTHER ==
[~2019-10-15] VITALS: Ht 157.5 cm; Wt 90.5 kg
[~2019-10-15 08:23] MED LIST changes: +IBUP80TA PO; +PERCOCET PO
[2019-10-15 09:00] LABS: BASO % 0.3 % (0.0-1.0); EOS # 0.2 10^3/uL (0.0-0.5); EOS % 1.9 % (0.0-3.0); HEMATOCRIT 30.5 % (36.0-47.0); HEMOGLOBIN 9.6 g/dl (12.0-15.5); LYMPH # 2.2 10^3/uL (1.5-5.0); LYMPH % 19.8 % (24.0-44.0); MEAN CORPUSCULAR HEMOGLOBIN 28.8 pg (27.0-33.0); MEAN CORPUSCULAR HGB CONC 31.5 g/dl (32.0-36.5); MEAN CORPUSCULAR VOLUME 91.6 fl (80.0-96.0); MONO # 0.5 10^3/uL (0.0-0.8); MONO % 4.4 % (0.0-5.0); NEUTROPHILS % 72.7 % (36.0-66.0); PLATELET COUNT, AUTOMATED 286 10^3/uL (150-450); RED BLOOD COUNT 3.33 10^6/uL (4.00-5.40)
[2019-10-15 09:59] LABS: ALBUMIN 2.5 GM/DL (3.2-5.2); ALT/SGPT 30 U/L (12-78); BILIRUBIN,DIRECT < 0.1 MG/DL (0.0-0.2); BILIRUBIN,TOTAL 0.3 MG/DL (0.2-1.0); BLOOD UREA NITROGEN 16 MG/DL (7-18); CALCIUM LEVEL 8.9 MG/DL (8.5-10.1); CARBON DIOXIDE LEVEL 23 MEQ/L (21-32); CHLORIDE LEVEL 107 MEQ/L (98-107); CREATININE FOR GFR 0.75 MG/DL (0.55-1.30); GLOMERULAR FILTRATION RATE > 60.0 (>60); GLUCOSE, FASTING 76 MG/DL (70-100); MAGNESIUM LEVEL 1.7 MG/DL (1.8-2.4); PHOSPHORUS LEVEL 3.7 MG/DL (2.5-4.9); POTASSIUM SERUM 4.1 MEQ/L (3.5-5.1); SODIUM LEVEL 140 MEQ/L (136-145); TOTAL PROTEIN 6.3 GM/DL (6.4-8.2)
[2019-10-15] MEDS ORDERED: MAGNESIUM OXIDE 400 MG TAB (MAG-OX) PO ONE (12:45)
[2019-10-15 13:15] LABS: AMPHETAMINES LEVEL URINE NEGATIVE (NEGATIVE); BARBITURATES URINE NEGATIVE (NEGATIVE); BENZODIAZEPINES URINE NEGATIVE (NEGATIVE); CANNABINOIDS URINE POSITIVE (NEGATIVE); COCAINE METABOLITE URINE NEGATIVE (NEGATIVE); METHADONE URINE NEGATIVE (NEGATIVE); OPIATES URINE NEGATIVE (NEGATIVE); PHENCYCLIDINE URINE NEGATIVE (NEGATIVE)
[2019-10-15 14:00] VITALS: BP 103/54
--- NOTE | 2019-10-16 07:54 | ECGEPIP ---
[facility] - ED Test Date: 2019-10-15 Pat Name: JAQUELIN HAMLIN Department: Room: - Gender: Female Field Administrator: GERALDO : 1990 Requested By: SANDOR Shaw Order Number: [id number] Reading MD: Sunni Gillespie Measurements Intervals [place] Rate: 75 P: -1 WI: 180 QRS: 52 QRSD: 80 T: 52 QT: 358 QTc: 401 Interpretive Statements SINUS RHYTHM DECREASED RATE 02/17/18 Electronically Signed on 10-16-2019 7:54:30 EST by Sunni Gillespie
== END 2019-10-15 14:20 | disposition left against medical advice (07) ==
LOC: M ED 08:23
DX: O99.355 Diseases of the nervous system complicating the puerperium (principal); G40.909 Epilepsy, unspecified, not intractable, without status epilepticus; O99.335 Smoking (tobacco) complicating the puerperium; F17.210 Nicotine dependence, cigarettes, uncomplicated; Z79.899 Other long term (current) drug therapy

== ENCOUNTER → 2020-06-18 | Outpatient (CLI) | payer OTHER ==
[~2020-06-18] MED LIST changes: -FLUO20CA19; +FLUO20CA22
[2020-06-23 17:11] LABS: LACOSAMIDE LEVEL 2.2 ug/mL (5.0-10.0)
== END ==
LOC: M LAB 15:49
PROVIDERS: ATTEND Physician Assistant Medical
DX: R56.9 Unspecified convulsions (principal)

== ENCOUNTER → 2020-12-29 | Outpatient (CLI) | payer OTHER ==
[2020-12-29 13:15] LABS: BASO % 0.5 % (0.0-1.0); EOS # 0.1 10^3/uL (0.0-0.5); EOS % 0.8 % (0.0-3.0); HEMATOCRIT 43.1 % (36.0-47.0); HEMOGLOBIN 14.2 g/dl (12.0-15.5); LYMPH # 2.4 10^3/uL (1.5-5.0); LYMPH % 28.1 % (24.0-44.0); MEAN CORPUSCULAR HEMOGLOBIN 30.1 pg (27.0-33.0); MEAN CORPUSCULAR HGB CONC 32.9 g/dl (32.0-36.5); MEAN CORPUSCULAR VOLUME 91.3 fl (80.0-96.0); MONO # 0.5 10^3/uL (0.0-0.8); MONO % 5.5 % (2.0-8.0); NEUTROPHILS # 5.5 10^3/uL (1.5-8.5); NEUTROPHILS % 64.9 % (36.0-66.0); PLATELET COUNT, AUTOMATED 274 10^3/uL (150-450); RED BLOOD COUNT 4.72 10^6/uL (4.00-5.40); WHITE BLOOD COUNT 8.5 10^3/uL (4.0-10.0)
[2020-12-29 13:43] LABS: ALBUMIN 4.1 GM/DL (3.2-5.2); ALT/SGPT 22 U/L (12-78); BILIRUBIN,TOTAL 0.3 MG/DL (0.2-1.0); BLOOD UREA NITROGEN 7 MG/DL (7-18); CARBON DIOXIDE LEVEL 28 MEQ/L (21-32); CHLORIDE LEVEL 107 MEQ/L (98-107); CREATININE FOR GFR 0.66 MG/DL (0.55-1.30); GLOMERULAR FILTRATION RATE > 60.0 (>60); GLUCOSE, FASTING 91 MG/DL (70-100); POTASSIUM SERUM 3.5 MEQ/L (3.5-5.1); SODIUM LEVEL 139 MEQ/L (136-145); TOTAL PROTEIN 7.8 GM/DL (6.4-8.2)
== END ==
LOC: M LAB 11:10
PROVIDERS: ATTEND Physician Assistant Medical
DX: G40.89 Other seizures (principal); Z51.81 Encounter for therapeutic drug level monitoring

== ENCOUNTER 2021-03-14 11:18 | Emergency (ER) | payer OTHER ==
[~2021-03-14] VITALS: Ht 157.5 cm; Wt 86.4 kg
[2021-03-14] MEDS ORDERED: ZOLO100T PO (11:52)
[2021-03-14] MEDS ORDERED: VIMP50TA3 PO (11:52)
[2021-03-14] MEDS ORDERED: KEPP10002 PO (11:52)
--- NOTE | 2021-03-14 11:53 | REP ---
INDICATION: seziure activity, severe headache COMPARISON: 01/28/2019 TECHNIQUE: Axial noncontrast images from the skull base to the vertex with coronal reformations. This CT examination was performed using the following dose reduction techniques: Automated exposure control, adjustment of mA and/or kv according to the patient's size, and use of iterative reconstruction technique. FINDINGS: The ventricles, sulci, and cisterns are normal in position and appearance. Suarez-white differentiation is maintained. No acute intracranial hemorrhage, mass/mass effect, pathology or trauma/injury. No evidence for acute infarction. No extra-axial fluid collection. Calvarium is intact. Paranasal sinuses and mastoid air cells are clear. IMPRESSION: Normal noncontrast head CT. No evidence for acute intracranial pathology or trauma/injury. <Electronically signed by Adam Daniels > 03/14/21 [id number]
[2021-03-14] MEDS ORDERED: ONDANSETRON 4MG/2ML VIAL IV ONE ×2 (12:15→12:20)
[2021-03-14 12:24] LABS: HEMATOCRIT 43.1 % (36.0-47.0); HEMOGLOBIN 14.3 g/dl (12.0-15.5); MEAN CORPUSCULAR HEMOGLOBIN 29.5 pg (27.0-33.0); MEAN CORPUSCULAR HGB CONC 33.2 g/dl (32.0-36.5); MEAN CORPUSCULAR VOLUME 88.9 fl (80.0-96.0); PLATELET COUNT, AUTOMATED 331 10^3/uL (150-450); RED BLOOD COUNT 4.85 10^6/uL (4.00-5.40); WHITE BLOOD COUNT 12.4 10^3/uL (4.0-10.0)
[2021-03-14] MEDS ORDERED: NS 1,000 ML IV SCH (12:35)
[2021-03-14 12:55] LABS: HCG, SERUM QUALITATIVE NEGATIVE (NEGATIVE)
[2021-03-14 13:06] LABS: ALT/SGPT 25 U/L (12-78); BILIRUBIN,DIRECT 0.1 MG/DL (0.0-0.2); BILIRUBIN,TOTAL 0.4 MG/DL (0.2-1.0); BLOOD UREA NITROGEN 11 MG/DL (7-18); CALCIUM LEVEL 9.3 MG/DL (8.5-10.1); CARBON DIOXIDE LEVEL 24 MEQ/L (21-32); CHLORIDE LEVEL 106 MEQ/L (98-107); CREATININE FOR GFR 0.68 MG/DL (0.55-1.30); FREE T4 0.92 NG/DL (0.76-1.46); GLOMERULAR FILTRATION RATE > 60.0 (>60); GLUCOSE, FASTING 124 MG/DL (70-100); POTASSIUM SERUM 3.8 MEQ/L (3.5-5.1); SODIUM LEVEL 138 MEQ/L (136-145); TOTAL PROTEIN 7.9 GM/DL (6.4-8.2)
[2021-03-14] MEDS ORDERED: SERTRALINE 100 MG TAB PO ONE (13:10)
[2021-03-14] MEDS ORDERED: LACOSAMIDE 50 MG TAB (VIMPAT) PO ONE ×2 (13:10→18:15)
[2021-03-14] MEDS ORDERED: levETIRAcetam 250MG TABLET (KEPPRA) PO ONE (13:10)
--- NOTE | 2021-03-14 13:48 | REP ---
INDICATION: seizure x 2 COMPARISON: 01/10/2018 TECHNIQUE: Portable AP view of the chest FINDINGS: The mediastinum and cardiac silhouette are stable and within normal limits for portable technique. The lung sosa are clear without acute consolidation, effusion, or pneumothorax. Skeletal structures are intact. IMPRESSION: No acute cardiopulmonary process appreciated. <Electronically signed by Adam Daniels > 03/14/21 [id number]
[2021-03-14 17:49] LABS: AMPHETAMINES LEVEL URINE NEGATIVE (NEGATIVE); BARBITURATES URINE NEGATIVE (NEGATIVE); BENZODIAZEPINES URINE NEGATIVE (NEGATIVE); CANNABINOIDS URINE POSITIVE (NEGATIVE); COCAINE METABOLITE URINE NEGATIVE (NEGATIVE); METHADONE URINE NEGATIVE (NEGATIVE); OPIATES URINE NEGATIVE (NEGATIVE); PHENCYCLIDINE URINE NEGATIVE (NEGATIVE)
[2021-03-14 18:39] VITALS: BP 102/56
--- NOTE | 2021-03-14 19:34 | ECGEPIP ---
[facility] - ED Test Date: 2021-03-14 Pat Name: JAQUELIN HAMLIN Department: Room: - Gender: Female Pediatric Physician Assistant: : 1990 Requested By: SANDOR Shaw Order Number: [id number] Reading MD: Josh Moseley Measurements Intervals [place] Rate: 86 P: 20 [place]: 184 QRS: 24 QRSD: 80 T: 10 QT: 342 QTc: 409 Interpretive Statements Normal sinus rhythm Nonspecific T wave abnormality cw 10/15/[address] T wave changes Electronically Signed on 03-14-2021 19:34:00 EDT by Josh Moseley
== END 2021-03-14 18:46 | disposition home or self-care (01) ==
LOC: M ED 11:18
DX: R56.9 Unspecified convulsions (principal); F17.200 Nicotine dependence, unspecified, uncomplicated; F12.10 Cannabis abuse, uncomplicated
CPT/HCPCS: 70450; 71045; 80048; 80076; 80180; 80307; 81001; 83605; 84439; 84443; 84703; 85027; 93005; 93041; 94760; 96361; 96374; 99285; J2405

== ENCOUNTER → 2021-05-25 | Outpatient (CLI) | payer OTHER ==
[~2021-05-25] MED LIST changes: +VIMP50TA3 PO; +ZOLO100T PO
== END ==
LOC: M LAB 09:54
PROVIDERS: ATTEND Physician Assistant Medical
DX: R56.9 Unspecified convulsions (principal)

== ENCOUNTER → 2023-01-05 | Outpatient (REF) | payer OTHER | LOC: M LAB REF 16:10 | PROVIDERS: ATTEND Physician Assistant | DX: J02.9 Acute pharyngitis, unspecified (principal) ==

== ENCOUNTER → 2023-03-23 | Outpatient (REF) | payer OTHER ==
[2023-03-23 17:12] LABS: HEMATOCRIT 43.1 % (36.0-47.0); HEMOGLOBIN 14.2 g/dl (12.0-15.5); MEAN CORPUSCULAR HEMOGLOBIN 30.1 pg (27.0-33.0); MEAN CORPUSCULAR HGB CONC 32.9 g/dl (32.0-36.5); MEAN CORPUSCULAR VOLUME 91.5 fl (80.0-96.0); PLATELET COUNT, AUTOMATED 343 10^3/uL (150-450); RED BLOOD COUNT 4.71 10^6/uL (4.00-5.40); WHITE BLOOD COUNT 10.2 10^3/uL (4.0-10.0)
[2023-03-23 17:35] LABS: HEPATITIS B SURFACE ANTIGEN NEGATIVE (NEGATIVE)
[2023-03-23 17:48] LABS: HIV 1&2 SCREEN NEGATIVE (NEGATIVE)
[2023-03-23 17:56] LABS: HEPATITIS C VIRUS ABY INDEX 0.09 INDEX (<0.8)
[2023-03-23 17:58] LABS: HCG, SERUM QUANTITATIVE 26995.6 MIU/ML (<4.2)
== END ==
LOC: M LAB REF 16:32
PROVIDERS: ATTEND Obstetrics & Gynecology
DX: Z32.01 Encounter for pregnancy test, result positive (principal); O36.80X0 Pregnancy with inconclusive fetal viability, not applicable or unspecified; Z3A.00 Weeks of gestation of pregnancy not specified

== ENCOUNTER → 2023-04-14 | Outpatient (CLI) | payer OTHER | LOC: M WHC 13:23 | PROVIDERS: ATTEND Obstetrics & Gynecology | DX: Z32.01 Encounter for pregnancy test, result positive (principal); O36.80X0 Pregnancy with inconclusive fetal viability, not applicable or unspecified; Z3A.09 9 weeks gestation of pregnancy ==

== ENCOUNTER → 2023-08-16 | Outpatient (CLI) | payer OTHER ==
[2023-08-16 11:44] LABS: HEMATOCRIT 31.2 % (36.0-47.0); HEMOGLOBIN 10.5 g/dl (12.0-15.5); MEAN CORPUSCULAR HEMOGLOBIN 30.3 pg (27.0-33.0); MEAN CORPUSCULAR HGB CONC 33.7 g/dl (32.0-36.5); MEAN CORPUSCULAR VOLUME 90.2 fl (80.0-96.0); PLATELET COUNT, AUTOMATED 245 10^3/uL (150-450); RED BLOOD COUNT 3.46 10^6/uL (4.00-5.40); WHITE BLOOD COUNT 12.2 10^3/uL (4.0-10.0)
== END ==
LOC: M LAB 10:23
PROVIDERS: ATTEND Obstetrics & Gynecology
DX: Z34.82 Encounter for supervision of other normal pregnancy, second trimester (principal)

== ENCOUNTER → 2023-09-04 | Outpatient (CLI) | payer OTHER | LOC: M LAB 08:07 | PROVIDERS: ATTEND Obstetrics & Gynecology | DX: O99.810 Abnormal glucose complicating pregnancy (principal); Z3A.00 Weeks of gestation of pregnancy not specified ==

== ENCOUNTER → 2023-10-17 | Outpatient (REF) | payer OTHER | LOC: M LAB REF 16:17 | PROVIDERS: ATTEND Obstetrics & Gynecology | DX: Z34.83 Encounter for supervision of other normal pregnancy, third trimester (principal) ==

== ENCOUNTER → 2024-07-10 | Outpatient (REF) | payer OTHER, MEDICAID ==
[~2024-07-10] MED LIST changes: +ACET-683 PO; +COLA100C5 PO; +FLUO-365; -FLUO20CA22; +VIMP150T PO
[2024-07-10 18:19] LABS: BASO # 0.1 10^3/uL (0.0-0.2); BASO % 0.6 % (0.0-1.0); EOS # 0.1 10^3/uL (0.0-0.5); EOS % 1.5 % (0.0-3.0); HEMATOCRIT 43.1 % (36.0-47.0); HEMOGLOBIN 14.4 g/dl (12.0-15.5); LYMPH # 2.1 10^3/uL (1.5-5.0); LYMPH % 27.2 % (24.0-44.0); MEAN CORPUSCULAR HEMOGLOBIN 30.6 pg (27.0-33.0); MEAN CORPUSCULAR HGB CONC 33.4 g/dl (32.0-36.5); MEAN CORPUSCULAR VOLUME 91.5 fl (80.0-96.0); MONO # 0.3 10^3/uL (0.0-0.8); MONO % 4.1 % (2.0-8.0); NEUTROPHILS # 5.2 10^3/uL (1.5-8.5); NEUTROPHILS % 66.3 % (36.0-66.0); PLATELET COUNT, AUTOMATED 290 10^3/uL (150-450); RED BLOOD COUNT 4.71 10^6/uL (4.00-5.40); WHITE BLOOD COUNT 7.9 10^3/uL (4.0-10.0)
[2024-07-10 18:32] LABS: HEMOGLOBIN A1c 5.2 % (4.0-6.0)
[2024-07-10 18:39] LABS: ALBUMIN 4.1 G/DL (3.2-5.2); ALKALINE PHOSPHATASE 72 U/L (46-116); ALT/SGPT 16 U/L (7.0-40); AST/SGOT 10 U/L (<34); BILIRUBIN,TOTAL 0.4 MG/DL (0.3-1.2); BLOOD UREA NITROGEN 13 MG/DL (9-23); CALCIUM LEVEL 9.4 MG/DL (8.5-10.1); CARBON DIOXIDE LEVEL 28 MMOL/L (20-31); CHLORIDE LEVEL 107 MMOL/L (98-107); CHOLESTEROL LEVEL 189 MG/DL (<200); CHOLESTEROL RISK RATIO 4.16 (<5); CREATININE FOR GFR 0.66 MG/DL (0.55-1.30); GLOMERULAR FILTRATION RATE > 60.0 (>60); GLUCOSE, FASTING 79 MG/DL (60-100); HDL CHOLESTEROL 45.4 MG/DL (>40); LDL CHOLESTEROL 118.4 MG/DL (<100); MAGNESIUM LEVEL 1.9 MG/DL (1.8-2.4); NON-HDL-C 143.6 MG/DL; POTASSIUM SERUM 4.6 MMOL/L (3.5-5.1); SODIUM LEVEL 136 MMOL/L (136-145); TOTAL PROTEIN 7.6 G/DL (5.7-8.2); TRIGLYCERIDES LEVEL 126 MG/DL (<150)
[2024-07-10 18:41] LABS: THYROID STIMULATING HORMONE 2.583 uIU/ML (0.55-4.78)
== END ==
LOC: M LAB REF 16:36
PROVIDERS: ATTEND Family Medicine Addiction Medicine
DX: E66.3 Overweight (principal)

== ENCOUNTER 2024-07-15 04:46 | Emergency (ER) | payer MEDICAID, OTHER ==
[2024-07-15] MEDS ORDERED: LORazepam 2 MG/ML 1ML VIAL As Ordered ONE (05:00)
[2024-07-15] MEDS: LORazepam 2 MG/ML 1ML VIAL IV STA (05:13)
[2024-07-15] MEDS ORDERED: LACOSAMIDE 50 MG TAB (VIMPAT) PO ONE ×2 (08:40)
[2024-07-15] MEDS ORDERED: levETIRAcetam INJection 1,000 MG in D5W 100 ML IV ONE (08:40)
[2024-07-15] MEDS: NS 500 ML IV ONE (08:53)
[2024-07-15] MEDS: LACOSAMIDE 50 MG TAB (VIMPAT) PO ONE (08:54)
[2024-07-15 09:08] LABS: BASO # 0.1 10^3/uL (0.0-0.2); BASO % 0.3 % (0.0-1.0); EOS % 0.1 % (0.0-3.0); HEMATOCRIT 40.5 % (36.0-47.0); HEMOGLOBIN 13.7 g/dl (12.0-15.5); LYMPH # 1.2 10^3/uL (1.5-5.0); MEAN CORPUSCULAR HGB CONC 33.8 g/dl (32.0-36.5); MEAN CORPUSCULAR VOLUME 88.6 fl (80.0-96.0); MONO # 0.4 10^3/uL (0.0-0.8); MONO % 2.3 % (2.0-8.0); NEUTROPHILS # 15.4 10^3/uL (1.5-8.5); NEUTROPHILS % 89.8 % (36.0-66.0); PLATELET COUNT, AUTOMATED 290 10^3/uL (150-450); RED BLOOD COUNT 4.57 10^6/uL (4.00-5.40); WHITE BLOOD COUNT 17.1 10^3/uL (4.0-10.0)
[2024-07-15 09:25] LABS: ALKALINE PHOSPHATASE 68 U/L (46-116); ALT/SGPT 14 U/L (7.0-40); AST/SGOT 11 U/L (<34); BILIRUBIN,DIRECT < 0.1 MG/DL (<0.4); BILIRUBIN,TOTAL 0.3 MG/DL (0.3-1.2); BLOOD UREA NITROGEN 10 MG/DL (9-23); CALCIUM LEVEL 9.2 MG/DL (8.5-10.1); CARBON DIOXIDE LEVEL 25 MMOL/L (20-31); CHLORIDE LEVEL 107 MMOL/L (98-107); GLOMERULAR FILTRATION RATE > 60.0 (>60); GLUCOSE, FASTING 113 MG/DL (60-100); POTASSIUM SERUM 3.9 MMOL/L (3.5-5.1); SODIUM LEVEL 138 MMOL/L (136-145); TOTAL PROTEIN 7.3 G/DL (5.7-8.2)
[2024-07-15 09:26] LABS: CPK CREATINE PHOSPHOKINASE 205 U/L (34-145)
[2024-07-15 09:34] LABS: BARBITURATES URINE NEGATIVE (NEGATIVE); COCAINE METABOLITE URINE NEGATIVE (NEGATIVE); METHADONE URINE NEGATIVE (NEGATIVE)
[2024-07-15 09:35] LABS: AMPHETAMINES LEVEL URINE NEGATIVE (NEGATIVE); BENZODIAZEPINES URINE NEGATIVE (NEGATIVE); OPIATES URINE NEGATIVE (NEGATIVE); PHENCYCLIDINE URINE NEGATIVE (NEGATIVE)
[2024-07-15 09:48] LABS: CANNABINOIDS URINE POSITIVE (NEGATIVE)
[2024-07-15] MEDS: levETIRAcetam INJection 1,000 MG in D5W 100 ML IV ONE (09:48)
[2024-07-15] MEDS: ACETAMINOPHEN *IV* 1,000 MG in IV 1 EA IV ONE (14:16)
[2024-07-15] MEDS ORDERED: KEPP10002 PO (14:53)
[2024-07-15] MEDS ORDERED: HOME MED LIST COMPLETE! XX SCH (14:55)
[2024-07-15] MEDS: ONDANSETRON 4MG 2ML VIAL IV ONE (15:08)
[2024-07-15 16:40] VITALS: BP 102/55; TEMP 98.2; O2SAT 96
== END 2024-07-15 16:44 | disposition home or self-care (01) ==
LOC: M ED 04:46
DX: G40.909 Epilepsy, unspecified, not intractable, without status epilepticus (principal); F17.210 Nicotine dependence, cigarettes, uncomplicated; F12.10 Cannabis abuse, uncomplicated; Z79.899 Other long term (current) drug therapy
CPT/HCPCS: 80048; 80076; 80177; 80307; 82550; 85025; 96361; 96374; 96375; 99285; J0131; J1953; J2060; J2405